=== PATIENT | female | born 1995 | race Asian ===

== ENCOUNTER 2018-05-11 22:20 | Emergency (ER) | payer OTHER ==
[2018-05-11 23:15] VITALS: BP 141/100; PULSE 89; RESP 20
[2018-05-12 00:26] VITALS: TEMP 97.6
--- NOTE | 2018-05-12 00:43 | ED ---
General Adult HPI - General Chief complaint: Skin/Abscess/Foreign Body Stated complaint: Rash/IHS Time Seen by Provider: 05/12/18 00:29 Source: patient, family, RN notes reviewed Mode of arrival: ambulatory Limitations: no limitations - History of Present Illness Initial comments: Patient is a pleasant 22-year-old female presenting to the emergency department with rash. Symptoms have been present for around one week. Patient states areas have been somewhat coming and going. Patient has approximately 6-8 lesions on her arm and 1 above her left breast. Patient does have concern she may be exposed to something at work. Patient does work at a snf. Patient was advised come to the emergency department prior to returning to work to make sure she is not contagious. No fevers. There is another person at work with similar symptoms. Nobody at home with similar symptoms. - Related Data Home Medications Medication Instructions Recorded Confirmed lamoTRIgine [LaMICtal] 225 mg 10/18/14 10/18/14 Allergies Allergy/AdvReac Type Severity Reaction Status Date / Time No Known Allergies Allergy Verified 05/11/18 23:15 Review of Systems ROS Statement: Those systems with pertinent positive or pertinent negative responses have been documented in the HPI. ROS Other: All systems not noted in ROS Statement are negative. Constitutional: Denies: fever Eyes: Denies: eye pain ENT: Denies: ear pain Respiratory: Denies: cough Cardiovascular: Denies: chest pain Endocrine: Denies: fatigue Gastrointestinal: Denies: abdominal pain Genitourinary: Denies: dysuria Musculoskeletal: Denies: back pain Skin: Reports: rash Neurological: Denies: headache Psychiatric: Denies: depression Past Medical History Past Medical History: Seizure Disorder History of Any Multi-Drug Resistant Organisms: None Reported Past Surgical History: Tonsillectomy Past Psychological History: Anxiety, Depression Smoking Status: Never smoker Past Alcohol Use History: Occasional Past Drug Use History: None Reported General Exam Limitations: no limitations General appearance: alert, in no apparent distress Head exam: Present: atraumatic Eye exam: Present: normal appearance Respiratory exam: Present: normal lung sounds bilaterally Cardiovascular Exam: Present: regular rate, normal rhythm Extremities exam: Present: normal inspection Neurological exam: Present: alert Psychiatric exam: Present: normal affect, normal mood Skin exam: Present: rash (Patient does have approximately 6 lesions of her upper extremities and one above the left breast. These are smaller macules with some with central puncture/eschar. Symptoms consistent with bug bites.) Course Vital Signs 05/11/18 05/12/18 23:13 00:25 Temperature 98.5 F 97.6 F Pulse Rate 89 Respiratory 20 Rate Blood Pressure 141/100 O2 Sat by Pulse 100 Oximetry Disposition Clinical Impression: Insect bites Disposition: HOME SELF-CARE Condition: Stable Instructions: Insect Bite or Sting (ED) Additional Instructions: [id number] 1% hydrocortisone cream to affected areas needed. Please wash all clothing and sheets with warm soapy water. Follow-up with primary care physician in the next couple days for recheck. Clear to return to work. Return for increased rash, fevers, worsening or changing symptoms or other concerns. Is patient prescribed a controlled substance at d/c from ED?: No Referrals: Ganesh Wade MD [Primary Care Provider] - 1-2 days Time of Disposition: 00:43
== END 2018-05-12 01:47 | disposition home or self-care (01) ==
LOC: EC 22:20
DX: S40.862A Insect bite (nonvenomous) of left upper arm, initial encounter (principal); S40.861A Insect bite (nonvenomous) of right upper arm, initial encounter; S20.162A Insect bite (nonvenomous) of breast, left breast, initial encounter; G40.909 Epilepsy, unspecified, not intractable, without status epilepticus; F32.9 Major depressive disorder, single episode, unspecified; Z79.899 Other long term (current) drug therapy; W57.XXXA Bitten or stung by nonvenomous insect and other nonvenomous arthropods, initial encounter; Y99.0 Civilian activity done for income or pay
CPT/HCPCS: 99282

== ENCOUNTER 2018-07-30 22:05 | Emergency (ER) | payer OTHER ==
[2018-07-30] MEDS ORDERED: SODIUM CHLORIDE 0.9% 1,000 ML IV STA (22:52)
[2018-07-30] MEDS ORDERED: METOCLOPRAMIDE 5 MG/ML 2 ML VIAL IVP STA (22:52)
[2018-07-30] MEDS ORDERED: ACETAMINOPHEN IV (For NPO) 1,000 MG in EMPTY BAG 1 BAG IVPB ONE (22:52)
--- NOTE | 2018-07-30 22:56 | ED ---
General Adult HPI - General Chief complaint: Nausea/Vomiting/Diarrhea Stated complaint: vomiting,11 weeks preg Source: patient Mode of arrival: ambulatory Limitations: no limitations - History of Present Illness Initial comments: Dictation was produced using [employer] dictation software. please excuse any grammatical, word or spelling errors. Chief Complaint: 22-year-old female who states she is 11 weeks presents with headache, nausea and vomiting. History of Present Illness: A 22-year-old female. She states this is her first . She states she is 11 weeks . She had an ultrasound to confirm the done patient does have established [employer]. Patient has a history of seizures for she which she takes lamotrigine 4. She has been managed outpatient by her neurologist. Patient states she's also been having associated nausea and vomiting. Patient states her headache is like a band around her head. She states she has a history of headaches. She reports that she had increase of her seizure medication recently. The ROS documented in this emergency department record has been reviewed and confirmed by me. Those systems with pertinent positive or negative responses have been documented in the HPI. All other systems are other negative and/or noncontributory. - Related Data Home Medications Medication Instructions Recorded Confirmed Pnv No.95/Ferrous Fum/Folic AC 1 tab PO DAILY 06/21/18 07/30/18 [ Multivitamin Tablet] Folic Acid 1 mg PO DAILY 07/30/18 07/30/18 Yeny 500 mg PO DAILY 07/30/18 07/30/18 Pyridoxine [Vitamin B-6] 50 mg PO DAILY 07/30/18 07/30/18 lamoTRIgine [LaMICtal Xr] 250 mg PO HS 07/30/18 07/30/18 Previous Rx's Medication Instructions Recorded Doxylamine Succinate/Vit B6 1 each PO Q8HR PRN #20 tab.ir. 07/31/18 [Bonjesta ER 20-20 mg Tablet] Allergies Allergy/AdvReac Type Severity Reaction Status Date / Time shellfish derived [Lobster] Allergy Rash/Hives Verified 07/30/18 22:41 Review of Systems ROS Statement: Those systems with pertinent positive or pertinent negative responses have been documented in the HPI. ROS Other: All systems not noted in ROS Statement are negative. Past Medical History Past Medical History: Seizure Disorder History of Any Multi-Drug Resistant Organisms: None Reported Past Surgical History: Tonsillectomy Past Psychological History: Anxiety, Depression Smoking Status: Never smoker Past Alcohol Use History: None Reported Past Drug Use History: None Reported General Exam - General Exam Comments Initial Comments: PHYSICAL EXAM: General Impression: Alert and oriented x3, not in acute distress HEENT: Normocephalic atraumatic, extra-ocular movements intact, pupils equal and reactive to light bilaterally, mucous membranes moist. Cardiovascular: Heart regular rate and rhythm, S1&S2 audible, no murmurs, rubs or gallops Chest: Lungs clear to auscultation bilaterally, no rhonchi, no wheeze, no rales Abdomen: Bowel sounds present, abdomen soft, non-tender, non-distended, no organomegaly Musculoskeletal: Pulses present and equal in all extremities, no peripheral edema Motor: Power 5/5 bilaterally, no focal deficits noted Neurological: CN II-XII grossly intact, no focal motor or sensory deficits noted Skin: Intact with no visualized rashes Psych: Normal affect and mood Limitations: no limitations Course Vital Signs 07/30/18 22:21 Temperature 97.3 F L Pulse Rate 86 Respiratory 16 Rate Blood Pressure 140/82 O2 Sat by Pulse 99 Oximetry Medical Decision Making - Medical Decision Making ED course: 32-year-old female with past medical history of seizures presents with nausea, vomiting and headache. She is allegedly 11 weeks . Vital signs upon arrival shows blood pressure 140/82, rest of vital signs within normal limits. Patient is well-appearing. She does not state that this is the worse headache of her life. There is clinical concern for hyperemesis gravidarum. Laboratory evaluation obtained. Patient given intravenous fluid and headache cocktail. She is requesting have her urine checked for urinary tract infection. Laboratory evaluation obtained showing no acute processes. Patient given headache cocktail and observed in emergency department for several hours. Patient reevaluated with improvement of symptoms. Patient given prescription for likely just go home with. 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 Patient understandable agreeable to plan. - Lab Data Result diagrams: 07/30/18 23:12 07/30/18 23:12 Lab Results 07/30/18 07/30/18 07/30/18 Range/Units 23:12 23:12 23:12 WBC 12.8 H (3.8-10.6) k/uL RBC 4.67 (3.80-5.40) m/uL Hgb 13.6 (11.4-16.0) gm/dL Hct 40.8 (34.0-46.0) % MCV 87.4 (80.0-100.0) fL MCH 29.2 (25.0-35.0) pg MCHC 33.4 (31.0-37.0) g/dL RDW 13.2 (11.5-15.5) % Plt Count 294 (150-450) k/uL Neutrophils % 69 % Lymphocytes % 23 % Monocytes % 5 % Eosinophils % 1 % Basophils % 1 % Neutrophils # 8.9 H (1.3-7.7) k/uL Lymphocytes # 2.9 (1.0-4.8) k/uL Monocytes # 0.6 (0-1.0) k/uL Eosinophils # 0.2 (0-0.7) k/uL Basophils # 0.1 (0-0.2) k/uL Sodium 136 L (137-145) mmol/L Potassium 3.8 (3.5-5.1) mmol/L Chloride 101 (98-107) mmol/L Carbon Dioxide 24 (22-30) mmol/L Anion Gap 11 mmol/L BUN 12 (7-17) mg/dL Creatinine 0.47 L (0.52-1.04) mg/dL Est GFR (CKD-EPI)AfAm >90 (>60 ml/min/1.73 sqM) Est GFR (CKD-EPI)NonAf >90 (>60 ml/min/1.73 sqM) Glucose 82 (74-99) mg/dL Calcium 9.5 (8.4-10.2) mg/dL Magnesium 1.8 (1.6-2.3) mg/dL Urine Color Light Yellow Urine Appearance Clear (Clear) Urine pH 6.5 (5.0-8.0) Ur Specific [place] 1.008 (1.001-1.035) Urine Protein Negative (Negative) Urine Glucose (UA) Negative (Negative) Urine Ketones Negative (Negative) Urine Blood Negative (Negative) Urine Nitrite Negative (Negative) Urine Bilirubin Negative (Negative) Urine Urobilinogen <2.0 (<2.0) mg/dL Ur Leukocyte Esterase Negative (Negative) Disposition Clinical Impression: Nausea & vomiting Disposition: HOME SELF-CARE Instructions: Acute Nausea and Vomiting (ED) Prescriptions: Doxylamine Succinate/Vit B6 [Bonjesta ER 20-20 mg Tablet] 1 each PO Q8HR PRN # 20 tab.ir. PRN Reason: Nausea Is patient prescribed a controlled substance at d/c from ED?: No Referrals: Ganesh Wade MD [Primary Care Provider] - 1-2 days Time of Disposition: 00:41
[2018-07-30 23:39] LABS: Basophils # (A) 0.1 k/uL (0-0.2); Basophils % (A) 1 %; Eosinophils # (A) 0.2 k/uL (0-0.7); Eosinophils % (A) 1 %; HCT 40.8 % (34.0-46.0); HGB 13.6 gm/dL (11.4-16.0); Lymphocytes # (A) 2.9 k/uL (1.0-4.8); Lymphocytes % (A) 23 %; MCH 29.2 pg (25.0-35.0); MCHC 33.4 g/dL (31.0-37.0); MCV 87.4 fL (80.0-100.0); Mean Platelet Volume 6.7; Monocytes # (A) 0.6 k/uL (0-1.0); Monocytes % (A) 5 %; Neutrophils # (A) 8.9 k/uL (1.3-7.7); Neutrophils % (A) 69 %; Platelet Count 294 k/uL (150-450); RBC 4.67 m/uL (3.80-5.40); RDW 13.2 % (11.5-15.5); WBC 12.8 k/uL (3.8-10.6)
[2018-07-30 23:40] LABS: Appearance,Urine Clear (Clear); Bilirubin,Urine Negative (Negative); Blood,Urine Negative (Negative); Color,Urine Light Yellow; Glucose,Urine (UA) Negative (Negative); Ketones,Urine Negative (Negative); Leukocyte Esterase,Urine Negative (Negative); Nitrite,Urine Negative (Negative); PH, Urine 6.5 (5.0-8.0); Protein,Urine Negative (Negative); Specific Gravity,Urine 1.008 (1.001-1.035); Urobilinogen,Urine <2.0 mg/dL (<2.0)
[2018-07-31 00:31] LABS: Anion Gap 11 mmol/L; Blood Urea Nitrogen 12 mg/dL (7-17); Calcium 9.5 mg/dL (8.4-10.2); Carbon Dioxide 24 mmol/L (22-30); Chloride 101 mmol/L (98-107); Glucose 82 mg/dL (74-99); Magnesium 1.8 mg/dL (1.6-2.3); Potassium 3.8 mmol/L (3.5-5.1); Sodium 136 mmol/L (137-145)
[2018-07-31 01:24] VITALS: BP 122/83; PULSE 52; RESP 18; TEMP 97.7
== END 2018-07-31 01:23 | disposition home or self-care (01) ==
LOC: EC 22:05
DX: O21.9 Vomiting of pregnancy, unspecified (principal); O99.89 Other specified diseases and conditions complicating pregnancy, childbirth and the puerperium; R51 Headache; O99.351 Diseases of the nervous system complicating pregnancy, first trimester; G40.909 Epilepsy, unspecified, not intractable, without status epilepticus; O99.341 Other mental disorders complicating pregnancy, first trimester; F32.9 Major depressive disorder, single episode, unspecified; Z91.013 Allergy to seafood; Z79.899 Other long term (current) drug therapy; Z3A.11 11 weeks gestation of pregnancy
CPT/HCPCS: 36415; 80048; 83735; 85025; 81003; 87086; 99284; 96374; 96375; 96361; J2765; J0131

== ENCOUNTER 2018-12-30 23:11 | Emergency (ER) | payer OTHER ==
[2018-12-30 23:17] VITALS: RESP 18
[2018-12-30] MEDS ORDERED: ALBUTEROL NEBULIZED 2.5 MG/3 ML INHALATION STA (23:50)
[2018-12-30] MEDS ORDERED: SODIUM CHLORIDE 0.9% 500 ML 500 ML IV STA (23:50)
[2018-12-30] MEDS ORDERED: FAMOTIDINE 20 MG/2 ML VIAL IV STA (23:50)
[2018-12-31 00:38] LABS: Basophils # (A) 0.1 k/uL (0-0.2); Basophils % (A) 1 %; Eosinophils # (A) 0.3 k/uL (0-0.7); Eosinophils % (A) 3 %; HCT 34.9 % (34.0-46.0); HGB 11.4 gm/dL (11.4-16.0); Lymphocytes % (A) 19 %; MCHC 32.6 g/dL (31.0-37.0); MCV 85.8 fL (80.0-100.0); Mean Platelet Volume 7.6; Monocytes % (A) 9 %; Neutrophils # (A) 6.9 k/uL (1.3-7.7); Neutrophils % (A) 66 %; Platelet Count 256 k/uL (150-450); RBC 4.07 m/uL (3.80-5.40); RDW 13.3 % (11.5-15.5); WBC 10.4 k/uL (3.8-10.6)
[2018-12-31 00:50] LABS: ALT 18 U/L (9-52); AST 23 U/L (14-36); Alkaline Phosphatase 148 U/L (38-126); Amylase 78 U/L (30-110); Anion Gap 7 mmol/L; Blood Urea Nitrogen 10 mg/dL (7-17); Calcium 8.6 mg/dL (8.4-10.2); Carbon Dioxide 24 mmol/L (22-30); Chloride 106 mmol/L (98-107); Glucose 86 mg/dL (74-99); Lipase 129 U/L (23-300); Magnesium 1.9 mg/dL (1.6-2.3); Potassium 3.8 mmol/L (3.5-5.1); Sodium 137 mmol/L (137-145); Total Bilirubin 0.2 mg/dL (0.2-1.3); Total Protein 5.7 g/dL (6.3-8.2)
--- NOTE | 2018-12-31 00:53 | XR ---
EXAM: XR Chest, 2 Views CLINICAL HISTORY: Chest pain TECHNIQUE: Frontal and lateral views of the chest. COMPARISON: No relevant prior studies available. FINDINGS: Lungs: Unremarkable. No consolidation. Pleural space: Unremarkable. No pneumothorax. Heart: Unremarkable. No cardiomegaly. Mediastinum: Unremarkable. Bones/joints: Unremarkable. IMPRESSION: Normal chest x-rays.
--- NOTE | 2018-12-31 01:24 | ED ---
Chest Pain HPI - General Source: patient Mode of arrival: ambulatory Limitations: no limitations <Cristiana Aquino - Last Filed: 12/31/18 02:29> <Anna Gonsales - Last Filed: 12/31/18 02:56> - General Chief Complaint: Chest Pain Stated Complaint: Chest Pain Time Seen by Provider: 12/30/18 23:28 - History of Present Illness Initial Comments: 23-year-old female patient presents to the emergency department today for evaluation of a bandlike pain around her lower chest. Patient states she is having some shortness of breath with this. Patient states this started several hours ago. States she thought it was heartburn so she did take several tablets of Tums, Prilosec, and Gaviscon without relief of symptoms. Patient states this made her anxious so she presented here for further evaluation. Patient does report recently getting over pneumonia. States 2 days ago she started coughing again and having a sore throat. Denies any sputum production with the cough but states she does have some wheezing. She denies any nausea or vomiting. Denies any dizziness or weakness. Denies any palpitations. Denies nausea or vomiting. Patient is 33 weeks . She is . Patient denies any recent rash, fever, chills, diarrhea, constipation, back pain, numbness, tingling, hematuria, dysuria, urinary urgency, urinary frequency, headache, visual changes, or any other complaints. (Cristiana Aquino) - Related Data Home Medications Medication Instructions Recorded Confirmed Pnv No.95/Ferrous Fum/Folic AC 1 tab PO DAILY 06/21/18 07/30/18 [ Multivitamin Tablet] Folic Acid 1 mg PO DAILY 07/30/18 07/30/18 Yeny 500 mg PO DAILY 07/30/18 07/30/18 Pyridoxine [Vitamin B-6] 50 mg PO DAILY 07/30/18 07/30/18 lamoTRIgine [LaMICtal Xr] 250 mg PO HS 07/30/18 07/30/18 Previous Rx's Medication Instructions Recorded Doxylamine Succinate/Vit B6 1 each PO Q8HR PRN #20 tab.ir. 07/31/18 [Bonjesta ER 20-20 mg Tablet] Albuterol Sulfate [Proair Hfa] 1 - 2 puff INHALATION Q6HR PRN #1 12/31/18 inhaler predniSONE 50 mg PO DAILY #5 tablet 12/31/18 Allergies Allergy/AdvReac Type Severity Reaction Status Date / Time shellfish derived [Lobster] Allergy Rash/Hives Verified 12/30/18 23:17 Review of Systems ROS Other: All systems not noted in ROS Statement are negative. <RashmiCristiana saxena Dave - Last Filed: 12/31/18 02:29> ROS Other: All systems not noted in ROS Statement are negative. <Anna Gonsales - Last Filed: 12/31/18 02:56> ROS Statement: Those systems with pertinent positive or pertinent negative responses have been documented in the HPI. EKG Findings - EKG Comments: EKG Findings:: EKG obtained at 2329 shows normal sinus rhythm with a ventricular rate of 90, GA interval 124, QRS duration 84, QT 366, QTc 447. No evidence of ST elevation or depression. <RashmiLinus saxenamarilin Acosta - Last Filed: 12/31/18 02:29> Past Medical History Past Medical History: Seizure Disorder History of Any Multi-Drug Resistant Organisms: None Reported Past Surgical History: Tonsillectomy Past Psychological History: Anxiety, Depression Smoking Status: Never smoker Past Alcohol Use History: None Reported Past Drug Use History: None Reported <Cristiana Aquino - Last Filed: 12/31/18 02:29> General Exam Limitations: no limitations General appearance: alert, in no apparent distress, other (Physical well- developed, well-nourished adult female patient in no acute distress. Vital signs upon presentation are temperature 98.0F, pulse 95, respirations 18, blood pressure 114/74, pulse ox 97% on room air.) Eye exam: Present: normal appearance, PERRL, EOMI. Absent: scleral icterus, conjunctival injection, periorbital swelling ENT exam: Present: normal exam, normal oropharynx, mucous membranes moist Respiratory exam: Present: normal lung sounds bilaterally, other (She does have congested cough noted upon exam). Absent: respiratory distress, wheezes, rales, rhonchi, stridor Cardiovascular Exam: Present: regular rate, normal rhythm, normal heart sounds. Absent: systolic murmur, diastolic murmur, rubs, gallop, clicks GI/Abdominal exam: Present: soft, normal bowel sounds. Absent: distended, tenderness, guarding, rebound, rigid Neurological exam: Present: alert, oriented X3, CN II-XII intact Psychiatric exam: Present: normal affect, normal mood Skin exam: Present: warm, dry, intact, normal color. Absent: rash <Cristiana Aquino - Last Filed: 12/31/18 02:29> Course Vital Signs 12/30/18 12/31/18 12/31/18 23:15 00:35 00:56 Temperature 98.0 F Pulse Rate 95 86 85 Respiratory 18 18 Rate Blood Pressure 114/74 109/87 O2 Sat by Pulse 97 100 Oximetry 12/31/18 12/31/18 12/31/18 01:04 01:10 02:23 Temperature 97.7 F Pulse Rate 85 98 Respiratory 18 18 Rate Blood Pressure 108/69 O2 Sat by Pulse 100 Oximetry Chest Pain MDM <Cristiana Aquino - Last Filed: 12/31/18 02:29> <Anna Gonsales - Last Filed: 12/31/18 02:56> - [facility]: Two-view x-ray of the chest is obtained. Report was reviewed in its entirety. Impression by Dr. Morton shows normal chest x-rays. MDM: 23-year-old female patient who is 33 weeks presents to the emergency department today for evaluation of chest pain. Patient reports a bandlike pain wrapped around her lower chest. Physical examination did reveal clear equal lung sounds. Abdomen was gravid but nontender. Labs reviewed and are unremarkable. Chest x-ray showed no acute cardio pulmonary process. Nursing labor and delivery was down and did perform nonstress test which was unremarkable. Patient was given a breathing treatment and IV Pepcid here in the emergency department. Upon reevaluation patient states symptoms have completely resolved. Patient does have a cough and is concerned for bronchitis we'll treat with Pro Air inhaler and prednisone. She has been discharged to follow-up with her primary care physician and her PROCESSING SPEC for recheck as soon as possible. Return parameters were discussed in detail. She verbalizes understanding and agrees with this plan. (Cristiana Aquino) I was available for consultation in the emergency department. The history and physical exam were done by the midlevel provider. I was consulted for this patient's care. I reviewed the case with the midlevel provider and based on their presentation of the patient, I agree with the assessment, medical decision making and plan of care as documented. (Anna Gonsales) Disposition Is patient prescribed a controlled substance at d/c from ED?: No Time of Disposition: 02:12 <Cristiana Aquino - Last Filed: 12/31/18 02:29> <Anna Gonsales - Last Filed: 12/31/18 02:56> Clinical Impression: Bronchitis, Chest pain Disposition: HOME SELF-CARE Condition: Good Instructions (If sedation given, give patient instructions): Chest Pain (ED), Acute Bronchitis (ED) Additional Instructions: Take medications as directed. Follow-up with your PROCESSING SPEC for recheck as soon as possible. Follow-up through primary care physician for recheck as soon as possible. Return to the emergency department immediately for any new, worsening, or concerning symptoms. Prescriptions: predniSONE 50 mg PO DAILY #5 tablet Albuterol Sulfate [Proair Hfa] 1 - 2 puff INHALATION Q6HR PRN #1 inhaler PRN Reason: Shortness Of Breath Referrals: Ganesh Wade MD [Primary Care Provider] - 1-2 days
[2018-12-31 02:08] LABS: INR 0.9 (<1.2); Prothrombin Time 9.4 sec (9.0-12.0)
[2018-12-31 02:24] VITALS: BP 108/69; PULSE 98; TEMP 97.7
== END 2018-12-31 02:24 | disposition home or self-care (01) ==
LOC: EC 23:11
DX: O99.513 Diseases of the respiratory system complicating pregnancy, third trimester (principal); J40 Bronchitis, not specified as acute or chronic; O99.353 Diseases of the nervous system complicating pregnancy, third trimester; G40.909 Epilepsy, unspecified, not intractable, without status epilepticus; O99.343 Other mental disorders complicating pregnancy, third trimester; F32.9 Major depressive disorder, single episode, unspecified; F41.9 Anxiety disorder, unspecified; Z3A.33 33 weeks gestation of pregnancy; Z79.899 Other long term (current) drug therapy; Z91.013 Allergy to seafood
CPT/HCPCS: 36415; 71046; 80053; 82150; 83690; 83735; 84484; 85025; 85610; 85730; 93005; 94640; 96361; 96374; 99285

== ENCOUNTER 2019-02-18 12:44 | Emergency (ER) | payer OTHER ==
[2019-02-18 12:57] VITALS: TEMP 98.3
--- NOTE | 2019-02-18 14:09 | XR ---
EXAMINATION TYPE: XR KUB DATE OF EXAM: 02/18/2019 2:04 PM CLINICAL HISTORY: Hemorrhoids and constipation. TECHNIQUE: Two Upright KUB images of the abdomen are obtained. COMPARISON: None. FINDINGS: Scattered gas is seen in non-distended stomach and small bowel loops. Gas and fecal materia l is seen in non-distended colon and rectum. There is no visceromegaly, pneumoperitoneum, or abnormal calcification appreciated. The lung bases are clear and the osseous structures are intact. IMPRESSION: Overall nonobstructive bowel gas pattern.
[2019-02-18 14:21] LABS: Basophils # (A) 0.1 k/uL (0-0.2); Basophils % (A) 1 %; Eosinophils # (A) 0.2 k/uL (0-0.7); Eosinophils % (A) 3 %; HCT 43.9 % (34.0-46.0); Lymphocytes # (A) 2.1 k/uL (1.0-4.8); Lymphocytes % (A) 26 %; MCH 28.4 pg (25.0-35.0); MCHC 32.8 g/dL (31.0-37.0); MCV 86.7 fL (80.0-100.0); Mean Platelet Volume 7.2; Monocytes # (A) 0.5 k/uL (0-1.0); Monocytes % (A) 6 %; Neutrophils # (A) 4.8 k/uL (1.3-7.7); Neutrophils % (A) 61 %; Platelet Count 378 k/uL (150-450); RBC 5.06 m/uL (3.80-5.40); RDW 14.4 % (11.5-15.5); WBC 7.9 k/uL (3.8-10.6)
[2019-02-18 14:24] LABS: ALT 37 U/L (9-52); AST 37 U/L (14-36); Albumin 4.5 g/dL (3.5-5.0); Alkaline Phosphatase 123 U/L (38-126); Amylase 84 U/L (30-110); Anion Gap 7 mmol/L; Blood Urea Nitrogen 19 mg/dL (7-17); Calcium 9.4 mg/dL (8.4-10.2); Carbon Dioxide 25 mmol/L (22-30); Chloride 107 mmol/L (98-107); Glucose 81 mg/dL (74-99); Lipase 123 U/L (23-300); Sodium 139 mmol/L (137-145); Total Bilirubin 0.6 mg/dL (0.2-1.3); Total Protein 7.7 g/dL (6.3-8.2)
[2019-02-18] MEDS ORDERED: LIDOCAINE VISCOUS 2% 15 ML CUP MUCOUS MEM ONE (14:26)
[2019-02-18 14:27] LABS: HGB 14.4 gm/dL (11.4-16.0)
[2019-02-18] MEDS ORDERED: GLYCERIN ADULT SUPPOSITORY 1 EACH RECTAL STA (14:27)
[2019-02-18 14:28] LABS: Potassium 4.8 mmol/L (3.5-5.1)
--- NOTE | 2019-02-18 14:49 | ED ---
Abdominal Pain HPI - General Chief Complaint: Abdominal Pain Stated Complaint: hemorrhoids/constipation Time Seen by Provider: 02/18/19 13:37 Source: patient Mode of arrival: ambulatory Limitations: no limitations - History of Present Illness Initial Comments: 23-year-old female 11 days , with history of hemorrhoids present today for chief complaint of constipation. Patient states she has not had a bowel movement in 8 days. She states that she is scared to due to pain from her hemorrhoids. Patient states they have been bleeding on and off. She states are painful to touch. Pt states that she has not had heavy vaginal bleeding. She state that she did not tear during her vaginal near the rectum. Patient denies fever chills night sweats. Patient denies any vaginal discharge or bleeding. Patient is breast-feeding. Remaining review of systems negative upon arrival patient appears well no signs of toxicity. - Related Data Home Medications Medication Instructions Recorded Confirmed Pnv No.95/Ferrous Fum/Folic AC 1 tab PO HS 06/21/18 02/18/19 [ Multivitamin Tablet] Escitalopram [Lexapro] 20 mg PO HS 02/18/19 02/18/19 Omeprazole [PriLOSEC] 20 mg PO HS 02/18/19 02/18/19 lamoTRIgine [lamoTRIgine ER] 400 mg PO HS 02/18/19 02/18/19 Previous Rx's Medication Instructions Recorded Docusate [Colace] 100 mg PO DAILY 10 Days #10 capsule 02/18/19 Allergies Allergy/AdvReac Type Severity Reaction Status Date / Time shellfish derived [Lobster] Allergy Rash/Hives Verified 02/18/19 13:45 Review of Systems ROS Statement: Those systems with pertinent positive or pertinent negative responses have been documented in the HPI. ROS Other: All systems not noted in ROS Statement are negative. Past Medical History Past Medical History: Seizure Disorder History of Any Multi-Drug Resistant Organisms: None Reported Past Surgical History: Tonsillectomy Past Psychological History: Anxiety, Depression Smoking Status: Never smoker Past Alcohol Use History: None Reported Past Drug Use History: None Reported General Exam - General Exam Comments Initial Comments: General: The patient is awake and alert, in no distress, and does not appear acutely ill. Eye: Pupils are equal, round and reactive to light, extra-ocular movements are intact. No nystagmus. There is normal conjunctiva bilaterally. No signs of icterus. Ears, nose, mouth and throat: There are moist mucous membranes and no oral lesions. Neck: The neck is supple, there is no tenderness or JVD. Cardiovascular: There is a regular rate and rhythm. No murmur, rub or gallop is appreciated. Respiratory: Lungs are clear to auscultation, respirations are non-labored, breath sounds are equal. No wheezes, stridor, rales, or rhonchi Gastrointestinal: Soft, non-distended, non-tender abdomen without masses or organomegaly noted. There is no rebound or guarding present. No CVA tenderness. Bowel sounds are unremarkable. Upon inspection of the rectum there is external hemorrhoid. This appears nonthrombosed. Tender to palpation Musculoskeletal: Normal ROM, no tenderness. Strength 5/5. Sensation intact. Pulses equal bilaterally 2+. Neurological: A&O x 3. CN II-XII intact, There are no obvious motor or sensory deficits. Coordination appears grossly intact. Speech is normal. Skin: Skin is warm and dry and no rashes or lesions are noted. Psychiatric: Cooperative, appropriate mood & affect, normal judgment. Limitations: no limitations Course Vital Signs 02/18/19 02/18/19 12:50 16:27 Temperature 98.3 F Pulse Rate 92 89 Respiratory 18 16 Rate Blood Pressure 117/79 112/78 O2 Sat by Pulse 98 100 Oximetry Medical Decision Making - Medical Decision Making 23-year-old female presenting for constipation. Patient states she has not had a bowel movement in greater than 8 days. On imaging study KUB there is normal PATTERN however significant fecal stasis. Patient was given viscous lidocaine per rectum. For pain management. Patient had glycerin suppository. Patient had very large bowel movement, she states it was the largest one of her life. Pt states she feels better. Pt does not appears to have thrombosed hemmrhoids. Pt given RX for colace. Pt using prepH at home. Pt will be discharge with outpatient pcp follow-up.Case discussed with attending provider Dr. Clemons over the phone prior to discharge who is agreeable with plan. - Lab Data Result diagrams: 02/18/19 13:50 02/18/19 13:50 Lab Results 02/18/19 02/18/19 Range/Units 13:50 13:50 WBC 7.9 (3.8-10.6) k/uL RBC 5.06 (3.80-5.40) m/uL Hgb 14.4 D (11.4-16.0) gm/dL Hct 43.9 (34.0-46.0) % MCV 86.7 (80.0-100.0) fL MCH 28.4 (25.0-35.0) pg MCHC 32.8 (31.0-37.0) g/dL RDW 14.4 (11.5-15.5) % Plt Count 378 (150-450) k/uL Neutrophils % 61 % Lymphocytes % 26 % Monocytes % 6 % Eosinophils % 3 % Basophils % 1 % Neutrophils # 4.8 (1.3-7.7) k/uL Lymphocytes # 2.1 (1.0-4.8) k/uL Monocytes # 0.5 (0-1.0) k/uL Eosinophils # 0.2 (0-0.7) k/uL Basophils # 0.1 (0-0.2) k/uL Sodium 139 (137-145) mmol/L Potassium 4.8 (3.5-5.1) mmol/L Chloride 107 (98-107) mmol/L Carbon Dioxide 25 (22-30) mmol/L Anion Gap 7 mmol/L BUN 19 H (7-17) mg/dL Creatinine 0.64 (0.52-1.04) mg/dL Est GFR (CKD-EPI)AfAm >90 (>60 ml/min/1.73 sqM) Est GFR (CKD-EPI)NonAf >90 (>60 ml/min/1.73 sqM) Glucose 81 (74-99) mg/dL Calcium 9.4 (8.4-10.2) mg/dL Total Bilirubin 0.6 (0.2-1.3) mg/dL AST 37 H (14-36) U/L ALT 37 (9-52) U/L Alkaline Phosphatase 123 (38-126) U/L Total Protein 7.7 (6.3-8.2) g/dL Albumin 4.5 (3.5-5.0) g/dL Amylase 84 (30-110) U/L Lipase 123 (23-300) U/L Disposition Clinical Impression: External hemorrhoid, Constipation, Rectal pain Disposition: HOME SELF-CARE Condition: Good Instructions (If sedation given, give patient instructions): Constipation (ED), Hemorrhoids (ED) Additional Instructions: Please use medication as discussed. Please follow-up with family doctor in the next 2 days. Please return to emergency room if the symptoms increase or worsen or for any other concerns. Prescriptions: Docusate [Colace] 100 mg PO DAILY 10 Days #10 capsule Is patient prescribed a controlled substance at d/c from ED?: No Referrals: Ganesh Wade MD [Primary Care Provider] - 1-2 days Time of Disposition: 16:09
[2019-02-18 16:27] VITALS: BP 112/78; PULSE 89; RESP 16
== END 2019-02-18 16:20 | disposition home or self-care (01) ==
LOC: EC 12:44
DX: K59.00 Constipation, unspecified (principal); K64.4 Residual hemorrhoidal skin tags; G40.909 Epilepsy, unspecified, not intractable, without status epilepticus; F41.9 Anxiety disorder, unspecified; F32.9 Major depressive disorder, single episode, unspecified; Z79.899 Other long term (current) drug therapy; Z91.013 Allergy to seafood
CPT/HCPCS: 36415; 74018; 80053; 82150; 83690; 85025; 99284

== ENCOUNTER 2020-12-07 16:00 | Outpatient (CLI) | payer BC ==
[2020-12-07 17:30] VITALS: BP 144/86; PULSE 111; RESP 16; TEMP 98.9
--- NOTE | 2021-01-24 17:24 | P.MSEPDOC ---
Presenting Problems - Arrival Data Date of Arrival on Unit: 12/07/20 Time of Arrival on Unit: 16:10 Mode of Transport: Wheelchair - Complaint OB-Reason for Admission/Chief Complaint: Other Comment: "pain in vagina" Medical History - Information : 2 Para: 1 Term: 1 : 0 Abortions: Spontaneous or Elective: 0 Number of Living Children: 1 - Gestational Age Gestational Age by MARCI (wks/days): 24 Weeks and 4 Days - History Complications: Other Comment: epilepzy . no siezures for 1 1/2 years. starting new med today Review of Systems - Review of Systems Constitutional: No problems Breast: No problems ENT: No problems Cardiovascular: No problems Respiratory: No problems Gastrointestinal: No problems Genitourinary: No problems Musculoskeletal: No problems Neurological: No problems Skin: No problems Comment: intercourse last night Vital Signs - Temperature Temperature: 98.9 F Temperature Source: Tympanic - Pulse Right Apical Pulse Rate: 111 Pulse Assessment Method: Automatic Cuff - Respirations Respiratory Rate: 16 Oxygen Delivery Method: Room Air - Blood Pressure Right Arm Blood Pressure: 144/86 Blood Pressure Mean: 105 Blood Pressure Source: Automatic Cuff Medical Screen Scoring (Pre) - Cervical Exam Dilation: 0 cm = 0 Effacement: Exam Deferred Membranes: Intact - Uterine Contractions Frequency: N/A - Maternal Vital Signs Maternal Temperature: N/A Maternal Blood Pressure: N/A Signs of Preeclampsia: N/A - Maternal Trauma Maternal Trauma: N/A - Assessment - Baby A Baseline FHR: 150 Heart Rate - NICHD Category: Category I (Normal) = 0 - Total Score - Baby A Total Score - Baby A: 0 - Total Score - Baby B Total Score - Baby B: 0 - Total Score - Baby C Total Score - Baby C: 0 - Level of Risk - Baby A Level of Risk - Baby A: Low (0-5) - Level of Risk - Baby B Level of Risk - Baby B: Low (0-5) - Level of Risk - Baby C Level of Risk - Baby C: Low (0-5) Physician Notification (Pre) - Physician Notified Physician Notified Date: 12/07/20 Physician Notified Time: 17:00 New Order Received: Yes (TRIAGE?DISCHARGE) - Notification Comment Comment: DOM. [place] [address]. high risk due to epilepzy. no problems with this preg so far. intercourse last night. worked today Disposition - Disposition OB Disposition: Discharge to home Discharge Date: 12/07/20 Discharge Time: 17:20 I agree with the RN Medical Screening Exam: Yes Physician's MSE Comment: Patient was not seen or examined by myself Case reviewed; plan agreed upon as documented in EMR&OBIX.: Yes Diagnosis: PAIN, UNSPECIFIED
== END 2020-12-07 17:20 | disposition home or self-care (01) ==
LOC: FBPOP 16:00
PROVIDERS: ATTEND Obstetrics & Gynecology Obstetrics
DX: O26.892 Other specified pregnancy related conditions, second trimester (principal); R10.2 Pelvic and perineal pain; Z3A.24 24 weeks gestation of pregnancy
CPT/HCPCS: 99213

== ENCOUNTER → 2022-04-18 | Outpatient (CLI) | payer BC ==
--- NOTE | 2022-04-18 08:37 | USB ---
Reason for Exam: Clinical finding. Technique: Method: Whole Breast Handheld. Patient Position: Supine. Prior Study Comparison: Baseline Ultrasound. Findings: The whole breast of the left breast was scanned. Scanned over the pain of pain and palpable concern, no abnormality seen by ultrasound.No solid or cystic masses are identified.. Complete left breast ultrasound including evaluation of subareolar and axillary regions. Overall Assessment: Negative, BI-RAD 1 Electronically signed and approved by: Steve Guthrie M.D.
== END | disposition home or self-care (01) ==
LOC: RADUSWWP 08:07
PROVIDERS: ATTEND Family Medicine
DX: N64.4 Mastodynia (principal)

== ENCOUNTER 2024-02-18 03:51 | Emergency (ER) | payer BC ==
--- NOTE | 2024-02-18 04:06 | ED ---
Recheck HPI - General Chief Complaint: Headache Stated Complaint: High BP Time Seen by Provider: 02/18/24 04:04 Source: patient, family, RN notes reviewed, old records reviewed Mode of arrival: ambulatory Limitations: no limitations - History of Present Illness Initial Comments: This is a 28-year-old female who presents for evaluation of headache. History of migraine headaches and coming in for found to have elevated blood pressure. At this point patient is having persistent headache and was found to have an elevated blood pressure which she is extremely concerned about. She has no chest pain shortness with abdominal pain no change in medications no other complaints MD Complaint: other (Hypertension with headache) -: days(s) Returns Today for: persistent/worsening pain related to initial visit Symptoms Since Prior Visit: worsening pain Associated Symptoms: none Treatments Prior to Arrival: Given Pain Meds on, other (Concern for headache) - Related Data Home Medications Medication Instructions Recorded Confirmed Pnv No.95/Ferrous Fum/Folic AC 1 tab PO HS 06/21/18 11/29/22 [ Multivitamin Tablet] DULoxetine HCL [Cymbalta] 20 mg PO DAILY 12/07/20 11/29/22 Allergies Allergy/AdvReac Type Severity Reaction Status Date / Time shellfish derived [Lobster] Allergy Rash/Hives Verified 02/18/24 04:00 Review of Systems ROS Statement: Those systems with pertinent positive or pertinent negative responses have been documented in the HPI. ROS Other: All systems not noted in ROS Statement are negative. Past Medical History Past Medical History: Asthma, Seizure Disorder History of Any Multi-Drug Resistant Organisms: None Reported Past Surgical History: Tonsillectomy Past Psychological History: Anxiety, Depression Smoking Status: Never smoker Past Alcohol Use History: None Reported Past Drug Use History: None Reported General Exam General appearance: alert, in no apparent distress Head exam: Present: atraumatic, normocephalic, normal inspection Eye exam: Present: normal appearance, PERRL, EOMI. Absent: scleral icterus, conjunctival injection, periorbital swelling ENT exam: Present: normal exam, mucous membranes moist Neck exam: Present: normal inspection. Absent: tenderness, meningismus, lymphadenopathy Respiratory exam: Present: normal lung sounds bilaterally. Absent: respiratory distress, wheezes, rales, rhonchi, stridor Cardiovascular Exam: Present: regular rate, normal rhythm, normal heart sounds. Absent: systolic murmur, diastolic murmur, rubs, gallop, clicks GI/Abdominal exam: Present: soft, normal bowel sounds. Absent: distended, tenderness, guarding, rebound, rigid Extremities exam: Present: normal inspection, full ROM, normal capillary refill. Absent: tenderness, pedal edema, joint swelling, calf tenderness Back exam: Present: normal inspection Neurological exam: Present: alert, oriented X3, CN II-XII intact Psychiatric exam: Present: normal affect, normal mood Skin exam: Present: warm, dry, intact, normal color. Absent: rash Course Vital Signs 02/18/24 02/18/24 02/18/24 03:53 04:50 06:04 Temperature 98.2 F Pulse Rate 73 71 62 Respiratory 18 18 18 Rate Blood Pressure 137/91 139/93 132/87 O2 Sat by Pulse 97 97 97 Oximetry - Reevaluation(s) Reevaluation #1: Medical records reviewed Reevaluation #2: Patient symptoms unchanged Reevaluation #3: Informed of results questions answered Reevaluation #4: Was pt. sent in by a medical professional or institution (, PA, [employer] WORKER, urgent care, hospital, or retirement...) When possible be specific @ -no Did you speak to anyone other than the patient for history (EMS, parent, family, police, friend...)? What history was obtained from this source @ -no Did you review nursing and triage notes (agree or disagree)? Why? @ -agree Are old charts reviewed (outside hosp., previous admission, EMS record, old EKG, old radiological studies, urgent care reports/EKG's, retirement records)? Report findings @ -yes Differential Diagnosis (chest pain, altered mental status, abdominal pain women, abdominal pain men, vaginal bleeding, weakness, fever, dyspnea, syncope, headache, dizziness, GI bleed, back pain, seizure, CVA, palpatations, mental health, musculoskeletal)? @ -prior EKG interpreted by me (3pts min.). @ -no X-rays interpreted by me (1pt min.). @ -no CT interpreted by me (1pt min.). @ -no U/S interpreted by me (1pt. min.). @ -no What testing was considered but not performed or refused? (CT, X-rays, U/S, l abs)? Why? @ -none What meds were considered but not given or refused? Why? @ -none Did you discuss the management of the patient with other professionals (professionals i.e. , PA, [employer] WORKER, lab, RT, psych nurse, social work professor, game attendant, teacher, fourth officer, transplant case manager)? Give summary @ -no Was smoking cessation discussed for >3mins.? @ -no Was critical care preformed (if so, how long)? @ -no Were there social determinants of health that impacted care today? How? (Homelessness, low income, unemployed, alcoholism, drug addiction, transportation, low edu. Level, literacy, decrease access to med. care, [facility], rehab)? @ -none Was there de-escalation of care discussed even if they declined (Discuss DNR or withdrawal of care, Hospice)? DNR status @ -no What co-morbidities impacted this encounter? (DM, HTN, Smoking, COPD, CAD, Cancer, CVA, ARF, Chemo, Hep., AIDS, mental health diagnosis, sleep apnea, morbid obesity)? @ -none Was patient admitted / discharged? Hospital course, mention meds given and route, prescriptions, significant lab abnormalities, going to OR and other pertinent info. @ -28 female to ER for evaluation of headache with concern for hypertension. No acute cause of symptoms found here in the ER patient feels well can be discharged home Discharge Undiagnosed new problem with uncertain prognosis? @ -no Drug Therapy requiring intensive monitoring for toxicity (Heparin, Nitro, Insulin, Cardizem)? @ -no Were any procedures done? @ -no Diagnosis/symptom? @ -Headache migraine headache hypertension Acute, or Chronic, or Acute on Chronic? @ -Acute Uncomplicated (without systemic symptoms) or Complicated (systemic symptoms)? @ -Complicated Side effects of treatment? @ -no Exacerbation, Progression, or Severe Exacerbation? @ -exacerbation Poses a threat to life or bodily function? How? (Chest pain, [place], [place], pneumonia, PE, COPD, DKA, ARF, appy, cholecystitis, CVA, Diverticulitis, Homicidal, Suicidal, threat to staff... and all critical care pts) @ -yes with cause of headache Reevaluation #5: Differential Headache: Migraine, tension, cluster, carbon monoxide, central venous thrombosis, pension karma temporal arteritis, acute closure glaucoma, intercranial hemorrhage, mastoiditis, sinusitis, head injury, this is not meant to be an all-inclusive list. Medical Decision Making - Medical Decision Making 28 female to ER for evaluation of headache with concern for hypertension. No acute cause of symptoms found here in the ER patient feels well can be discharged home - Lab Data Result diagrams: 02/18/24 04:24 02/18/24 04:24 Lab Results 02/18/24 02/18/24 02/18/24 Range/Units 04:24 04:24 04:24 WBC 7.4 (3.8-10.6) k/uL RBC 4.97 (3.80-5.40) m/uL Hgb 13.2 (11.4-16.0) gm/dL Hct 41.0 (34.0-46.0) % MCV 82.4 (80.0-100.0) fL MCH 26.5 (25.0-35.0) pg MCHC 32.2 (31.0-37.0) g/dL RDW 16.0 H (11.5-15.5) % Plt Count 315 (150-450) k/uL MPV 8.2 Neutrophils % 52 % Lymphocytes % 34 % Monocytes % 7 % Eosinophils % 4 % Basophils % 1 % Neutrophils # 3.8 (1.3-7.7) k/uL Lymphocytes # 2.5 (1.0-4.8) k/uL Monocytes # 0.5 (0-1.0) k/uL Eosinophils # 0.3 (0-0.7) k/uL Basophils # 0.1 (0-0.2) k/uL Anisocytosis Slight PT 10.9 (10.0-12.5) sec INR 1.0 (<1.2) APTT 25.2 (22.0-30.0) sec Sodium 137 (137-145) mmol/L Potassium 4.1 (3.5-5.1) mmol/L Chloride 107 (98-107) mmol/L Carbon Dioxide 22 (22-30) mmol/L Anion Gap 8 mmol/L BUN 17 (7-17) mg/dL Creatinine 0.60 (0.52-1.04) mg/dL Est GFR (CKD-EPI)AfAm >90 (>60 ml/min/1.73 sqM) Est GFR (CKD-EPI)NonAf >90 (>60 ml/min/1.73 sqM) Glucose 82 (74-99) mg/dL Plasma Lactic Acid Anthony (0.7-2.0) mmol/L Uric Acid 6.4 (3.7-7.4) mg/dL Calcium 9.0 (8.4-10.2) mg/dL Phosphorus 4.5 (2.5-4.5) mg/dL Magnesium 2.0 (1.6-2.3) mg/dL Total Bilirubin 0.3 (0.2-1.3) mg/dL AST 20 (14-36) U/L ALT 19 (4-34) U/L Alkaline Phosphatase 127 H (38-126) U/L Troponin I (0.000-0.034) ng/mL NT-Pro-B Natriuret Pep 35 pg/mL Total Protein 6.6 (6.3-8.2) g/dL Albumin 3.7 (3.5-5.0) g/dL Total Bile Acids (0-10) umol/L Urine Color Urine Appearance (Clear) Urine pH (5.0-8.0) Ur Specific [place] (1.001-1.035) Urine Protein (Negative) Urine Glucose (UA) (Negative) Urine Ketones (Negative) Urine Blood (Negative) Urine Nitrite (Negative) Urine Bilirubin (Negative) Urine Urobilinogen (<2.0) mg/dL Ur Leukocyte Esterase (Negative) Urine RBC (0-5) /hpf Urine WBC (0-5) /hpf Ur Squamous Epith Cells (0-4) /hpf Urine Bacteria (None) /hpf 02/18/24 02/18/24 02/18/24 Range/Units 04:24 04:24 04:45 WBC (3.8-10.6) k/uL RBC (3.80-5.40) m/uL Hgb (11.4-16.0) gm/dL Hct (34.0-46.0) % MCV (80.0-100.0) fL MCH (25.0-35.0) pg MCHC (31.0-37.0) g/dL RDW (11.5-15.5) % Plt Count (150-450) k/uL MPV Neutrophils % % Lymphocytes % % Monocytes % % Eosinophils % % Basophils % % Neutrophils # (1.3-7.7) k/uL Lymphocytes # (1.0-4.8) k/uL Monocytes # (0-1.0) k/uL Eosinophils # (0-0.7) k/uL Basophils # (0-0.2) k/uL Anisocytosis PT (10.0-12.5) sec INR (<1.2) APTT (22.0-30.0) sec Sodium (137-145) mmol/L Potassium (3.5-5.1) mmol/L Chloride (98-107) mmol/L Carbon Dioxide (22-30) mmol/L Anion Gap mmol/L BUN (7-17) mg/dL Creatinine (0.52-1.04) mg/dL Est GFR (CKD-EPI)AfAm (>60 ml/min/1.73 sqM) Est GFR (CKD-EPI)NonAf (>60 ml/min/1.73 sqM) Glucose (74-99) mg/dL Plasma Lactic Acid Anthony 0.8 (0.7-2.0) mmol/L Uric Acid (3.7-7.4) mg/dL Calcium (8.4-10.2) mg/dL Phosphorus (2.5-4.5) mg/dL Magnesium (1.6-2.3) mg/dL Total Bilirubin (0.2-1.3) mg/dL AST (14-36) U/L ALT (4-34) U/L Alkaline Phosphatase (38-126) U/L Troponin I <0.012 (0.000-0.034) ng/mL NT-Pro-B Natriuret Pep pg/mL Total Protein (6.3-8.2) g/dL Albumin (3.5-5.0) g/dL Total Bile Acids 3 (0-10) umol/L Urine Color Urine Appearance (Clear) Urine pH (5.0-8.0) Ur Specific [place] (1.001-1.035) Urine Protein (Negative) Urine Glucose (UA) (Negative) Urine Ketones (Negative) Urine Blood (Negative) Urine Nitrite (Negative) Urine Bilirubin (Negative) Urine Urobilinogen (<2.0) mg/dL Ur Leukocyte Esterase (Negative) Urine RBC (0-5) /hpf Urine WBC (0-5) /hpf Ur Squamous Epith Cells (0-4) /hpf Urine Bacteria (None) /hpf 02/18/24 Range/Units 05:00 WBC (3.8-10.6) k/uL RBC (3.80-5.40) m/uL Hgb (11.4-16.0) gm/dL Hct (34.0-46.0) % MCV (80.0-100.0) fL MCH (25.0-35.0) pg MCHC (31.0-37.0) g/dL RDW (11.5-15.5) % Plt Count (150-450) k/uL MPV Neutrophils % % Lymphocytes % % Monocytes % % Eosinophils % % Basophils % % Neutrophils # (1.3-7.7) k/uL Lymphocytes # (1.0-4.8) k/uL Monocytes # (0-1.0) k/uL Eosinophils # (0-0.7) k/uL Basophils # (0-0.2) k/uL Anisocytosis PT (10.0-12.5) sec INR (<1.2) APTT (22.0-30.0) sec Sodium (137-145) mmol/L Potassium (3.5-5.1) mmol/L Chloride (98-107) mmol/L Carbon Dioxide (22-30) mmol/L Anion Gap mmol/L BUN (7-17) mg/dL Creatinine (0.52-1.04) mg/dL Est GFR (CKD-EPI)AfAm (>60 ml/min/1.73 sqM) Est GFR (CKD-EPI)NonAf (>60 ml/min/1.73 sqM) Glucose (74-99) mg/dL Plasma Lactic Acid Anthony (0.7-2.0) mmol/L Uric Acid (3.7-7.4) mg/dL Calcium (8.4-10.2) mg/dL Phosphorus (2.5-4.5) mg/dL Magnesium (1.6-2.3) mg/dL Total Bilirubin (0.2-1.3) mg/dL AST (14-36) U/L ALT (4-34) U/L Alkaline Phosphatase (38-126) U/L Troponin I (0.000-0.034) ng/mL NT-Pro-B Natriuret Pep pg/mL Total Protein (6.3-8.2) g/dL Albumin (3.5-5.0) g/dL Total Bile Acids (0-10) umol/L Urine Color Colorless Urine Appearance Clear (Clear) Urine pH 6.0 (5.0-8.0) Ur Specific [place] 1.003 (1.001-1.035) Urine Protein Negative (Negative) Urine Glucose (UA) Negative (Negative) Urine Ketones Negative (Negative) Urine Blood Moderate H (Negative) Urine Nitrite Negative (Negative) Urine Bilirubin Negative (Negative) Urine Urobilinogen <2.0 (<2.0) mg/dL Ur Leukocyte Esterase Moderate H (Negative) Urine RBC 1 (0-5) /hpf Urine WBC 6 H (0-5) /hpf Ur Squamous Epith Cells <1 (0-4) /hpf Urine Bacteria Rare H (None) /hpf Disposition Clinical Impression: Headache, Migraine headache Disposition: HOME SELF-CARE Condition: Good Instructions (If sedation given, give patient instructions): Acute Headache (ED) Is patient prescribed a controlled substance at d/c from ED?: No Referrals: Patricio Ferrer MD [Primary Care Provider] - 1-2 days Time of Disposition: 06:00
[2024-02-18] MEDS: diphenhydrAMINE 50 MG/ML 1 ML VIAL IVP STA (04:25)
[2024-02-18] MEDS: PROCHLORPERAZINE INJ 10 MG/2 ML VIAL IVP STA (04:26)
[2024-02-18] MEDS: SODIUM CHLORIDE 0.9% 500 ML 500 ML IV STA (04:30)
[2024-02-18] MEDS: SODIUM CHLORIDE 0.9% 1,000 ML IV STA (04:31)
[2024-02-18] MEDS: ACETAMINOPHEN IV (For NPO) 1,000 MG in EMPTY BAG 1 BAG IVPB STA (04:33)
[2024-02-18 04:36] VITALS: RESP 18; TEMP 98.2
[2024-02-18] MEDS: IBUPROFEN IV 800 MG in SODIUM CHLORIDE 0.9% 250 ML IV ONE (04:54)
[2024-02-18 04:57] LABS: Anisocytosis Slight; Basophils # (A) 0.1 k/uL (0-0.2); Basophils % (A) 1 %; Eosinophils # (A) 0.3 k/uL (0-0.7); Eosinophils % (A) 4 %; HGB 13.2 gm/dL (11.4-16.0); Lymphocytes # (A) 2.5 k/uL (1.0-4.8); Lymphocytes % (A) 34 %; MCH 26.5 pg (25.0-35.0); MCHC 32.2 g/dL (31.0-37.0); MCV 82.4 fL (80.0-100.0); Mean Platelet Volume 8.2; Monocytes # (A) 0.5 k/uL (0-1.0); Monocytes % (A) 7 %; Neutrophils # (A) 3.8 k/uL (1.3-7.7); Neutrophils % (A) 52 %; Platelet Count 315 k/uL (150-450); RBC 4.97 m/uL (3.80-5.40); WBC 7.4 k/uL (3.8-10.6)
[2024-02-18 05:06] LABS: Partial Thromboplastin Time 25.2 sec (22.0-30.0); Prothrombin Time 10.9 sec (10.0-12.5)
[2024-02-18 05:12] LABS: Appearance,Urine Clear (Clear); Bacteria,Urine Rare /hpf; Bilirubin,Urine Negative (Negative); Blood,Urine Moderate (Negative); Color,Urine Colorless; Glucose,Urine (UA) Negative (Negative); Ketones,Urine Negative (Negative); Leukocyte Esterase,Urine Moderate (Negative); Nitrite,Urine Negative (Negative); Protein,Urine Negative (Negative); RBC,Urine 1 /hpf (0-5); Specific Gravity,Urine 1.003 (1.001-1.035); Squamous Epithelial Cell,Urine <1 /hpf (0-4); Urobilinogen,Urine <2.0 mg/dL (<2.0); WBC,Urine 6 /hpf (0-5)
[2024-02-18 05:13] LABS: ALT 19 U/L (4-34); AST 20 U/L (14-36); African American GFR (CKD) >90 (>60 ml/min/1.73 sqM); Albumin 3.7 g/dL (3.5-5.0); Alkaline Phosphatase 127 U/L (38-126); Anion Gap 8 mmol/L; Blood Urea Nitrogen 17 mg/dL (7-17); Carbon Dioxide 22 mmol/L (22-30); Chloride 107 mmol/L (98-107); Glucose 82 mg/dL (74-99); Non-African American GFR(CKD) >90 (>60 ml/min/1.73 sqM); Phosphorus 4.5 mg/dL (2.5-4.5); Potassium 4.1 mmol/L (3.5-5.1); Sodium 137 mmol/L (137-145); Total Bilirubin 0.3 mg/dL (0.2-1.3); Total Protein 6.6 g/dL (6.3-8.2); Uric Acid 6.4 mg/dL (3.7-7.4)
[2024-02-18 05:21] LABS: NT-Pro-B-Type Natriuretic Pept 35 pg/mL
[2024-02-18 07:30] VITALS: BP 132/87; PULSE 62
== END 2024-02-18 06:11 | disposition home or self-care (01) ==
LOC: EC 03:51
DX: G43.909 Migraine, unspecified, not intractable, without status migrainosus (principal); I10 Essential (primary) hypertension; Z91.013 Allergy to seafood
CPT/HCPCS: 36415; 82239; 83880; 80053; 83605; 83735; 84100; 84550; 84484; 85025; 85610; 85730; 81001; 99283; 96365; 96367; 96375 ×2; J1200; J0780; J0131; J1741

== ENCOUNTER 2025-05-02 15:35 | Inpatient (IN) | payer BC ==
--- NOTE | 2025-05-02 16:18 | ED ---
Psych HPI - General Chief Complaint: Psychiatric Symptoms Stated Complaint: Psych eval Time Seen by Provider: 05/02/25 15:44 Source: patient, RN notes reviewed, old records reviewed Mode of arrival: ambulatory Limitations: no limitations - History of Present Illness Initial Comments: This is a 29-year-old female to the ER for evaluation as patient was today for psychiatric evaluation and depression patient's main current plan is to hang herself from the floor in her basement some no one can see, denies drugs or alcohol MD Complaint: suicidal ideation, feels depressed -: unknown Associated Psychiatric Symptoms: depression History of same: Yes Quality: constant, getting worse Improves With: none Worsens With: none Associated Symptoms: denies other symptoms Treatments Prior to Arrival: placed on mental health hold If Self Harm: admits thoughts of self harm, has plan - Related Data Home Medications Medication Instructions Recorded Confirmed Pnv No.95/Ferrous Fum/Folic AC 1 tab PO DAILY 06/21/18 05/02/25 [ Multivitamin Tablet] Cholecalciferol [Vitamin D3 (25 50 mcg PO DAILY 05/02/25 05/02/25 Mcg = 1000 Iu)] Ferrous Sulfate [Iron (65 MG 325 mg PO DAILY 05/02/25 05/02/25 Elemental)] Methylphenidate HCl [Ritalin] 20 mg PO DAILY 05/02/25 05/02/25 Previous Rx's Medication Instructions Recorded ARIPiprazole IM [Abilify Maintena] 400 mg IM QMONTHLY #1 each 05/05/25 ARIPiprazole [Abilify] 15 mg PO DAILY 14 Days #14 tab 05/05/25 DULoxetine HCL [Cymbalta] 30 mg PO HS 30 Days #30 cap 05/05/25 hydrOXYzine HCL [Atarax] 50 mg PO HS 30 Days #60 tab 05/05/25 traZODone HCL [Desyrel] 50 mg PO HS PRN 30 Days #30 tab 05/05/25 Allergies Allergy/AdvReac Type Severity Reaction Status Date / Time shellfish derived [Lobster] Allergy Rash/Hives Verified 05/02/25 16:38 Review of Systems ROS Statement: Those systems with pertinent positive or pertinent negative responses have been documented in the HPI. ROS Other: All systems not noted in ROS Statement are negative. Past Medical History Past Medical History: Asthma, Seizure Disorder History of Any Multi-Drug Resistant Organisms: None Reported Past Surgical History: Tonsillectomy Past Psychological History: Anxiety, Depression Smoking Status: Never smoker Past Alcohol Use History: None Reported Past Drug Use History: None Reported General Exam Limitations: no limitations General appearance: alert, in no apparent distress Head exam: Present: atraumatic, normocephalic, normal inspection Eye exam: Present: normal appearance, PERRL, EOMI. Absent: scleral icterus, conjunctival injection, periorbital swelling ENT exam: Present: normal exam, mucous membranes moist Neck exam: Present: normal inspection. Absent: tenderness, meningismus, lymphadenopathy Respiratory exam: Present: normal lung sounds bilaterally. Absent: respiratory distress, wheezes, rales, rhonchi, stridor Cardiovascular Exam: Present: regular rate, normal rhythm, normal heart sounds. Absent: systolic murmur, diastolic murmur, rubs, gallop, clicks GI/Abdominal exam: Present: soft, normal bowel sounds. Absent: distended, tenderness, guarding, rebound, rigid Extremities exam: Present: normal inspection, full ROM, normal capillary refill. Absent: tenderness, pedal edema, joint swelling, calf tenderness Back exam: Present: normal inspection Neurological exam: Present: alert, oriented X3, CN II-XII intact Psychiatric exam: Present: normal affect, normal mood Skin exam: Present: warm, dry, intact, normal color. Absent: rash Course Vital Signs 05/02/25 15:36 Temperature 97.9 F Pulse Rate 84 Respiratory 22 Rate Blood Pressure 134/85 O2 Sat by Pulse 99 Oximetry - Reevaluation(s) Reevaluation #1: 05/02/25 16:42 Medical records reviewed Reevaluation #2: 05/02/25 16:42 Medically cleared for psychiatric evaluation Reevaluation #3: 05/02/25 16:42 Was pt. sent in by a medical professional or institution (, PA, [facility], urgent care, hospital, or fdc...) When possible be specific @ -no Did you speak to anyone other than the patient for history (EMS, parent, family, police, friend...)? What history was obtained from this source @ -no Did you review nursing and triage notes (agree or disagree)? Why? @ -agree Are old charts reviewed (outside hosp., previous admission, EMS record, old EKG, old radiological studies, urgent care reports/EKG's, fdc records)? Report findings @ -yes Differential Diagnosis (chest pain, altered mental status, abdominal pain women, abdominal pain men, vaginal bleeding, weakness, fever, dyspnea, syncope, headache, dizziness, GI bleed, back pain, seizure, CVA, palpatations, mental health, musculoskeletal)? @ -prior EKG interpreted by me (3pts min.). @ -no X-rays interpreted by me (1pt min.). @ -no CT interpreted by me (1pt min.). @ -no U/S interpreted by me (1pt. min.). @ -no What testing was considered but not performed or refused? (CT, X-rays, U/S, labs)? Why? @ -none What meds were considered but not given or refused? Why? @ -none Did you discuss the management of the patient with other professionals (professionals i.e. , PA, [facility], lab, RT, psych nurse, social work lecturer, sack department supervisor, teacher, armored vehicle officer, lining caser)? Give summary @ -no Was smoking cessation discussed for >3mins.? @ -no Was critical care preformed (if so, how long)? @ -no Were there social determinants of health that impacted care today? How? (Homelessness, low income, unemployed, alcoholism, drug addiction, transportation, low edu. Level, literacy, decrease access to med. care, shelter, rehab)? @ -none Was there de-escalation of care discussed even if they declined (Discuss DNR or withdrawal of care, Hospice)? DNR status @ -no What co-morbidities impacted this encounter? (DM, HTN, Smoking, COPD, CAD, Cancer, CVA, ARF, Chemo, Hep., AIDS, mental health diagnosis, sleep apnea, morbid obesity)? @ -none Was patient admitted / discharged? Hospital course, mention meds given and route, prescriptions, significant lab abnormalities, going to OR and other pertinent info. @ - 29 female to be admitted for psychiatric evaluation and treatment Transferred for inpatient psychiatric evaluation and treatment Undiagnosed new problem with uncertain prognosis? @ -no Drug Therapy requiring intensive monitoring for toxicity (Heparin, Nitro, Insulin, Cardizem)? @ -no Were any procedures done? @ -no Diagnosis/symptom? @ -Acute psychosis Acute, or Chronic, or Acute on Chronic? @ -Acute Uncomplicated (without systemic symptoms) or Complicated (systemic symptoms)? @ -Complicated Side effects of treatment? @ -no Exacerbation, Progression, or Severe Exacerbation? @ -exacerbation Poses a threat to life or bodily function? How? (Chest pain, [place], [place], pneumonia, PE, COPD, DKA, ARF, appy, cholecystitis, CVA, Diverticulitis, Homicidal, Suicidal, threat to staff... and all critical care pts) @ -no Reevaluation #4: Differential Mental Health Depression, anxiety, bipolar, psychosis, schizophrenia, borderline personality, situational depression, adjustment disorder, behavioral disorder, brain tumor, malingering, substance abuse, encephalopathy, medication reaction, dementia, hypothyroidism, degenerative neurologic disorder, lupus.... This is not meant to be all-inclusive list Medical Decision Making - Medical Decision Making 29 female to be admitted for psychiatric evaluation and treatment - Lab Data Result diagrams: 05/03/25 08:09 05/03/25 08:09 Lab Results 05/02/25 Range/Units 19:29 SARS-CoV-2 (PCR) Not Detected (Not Detectd) Disposition Clinical Impression: Acute psychosis, Acute anxiety, Depression, Suicidal ideation Disposition: TRANSFER TO PSYCH HOSP/UNIT Condition: Stable Is patient prescribed a controlled substance at d/c from ED?: No
[2025-05-02] MEDS ORDERED: MAG HYDROX/AL HYDROX/SIMETH 355 ML BOTTLE PO PRN (20:58)
[2025-05-02] MEDS ORDERED: MAGNESIUM HYDROXIDE 2,400 MG/30 ML CUP PO PRN (20:58)
[2025-05-02] MEDS: hydrOXYzine HCL 25 MG TAB PO PRN (21:35)
[2025-05-02] MEDS: ACETAMINOPHEN TAB 325 MG TAB PO PRN (21:36)
[2025-05-02 22:22] LABS: Bilirubin,Urine Negative (Negative); Blood,Urine Moderate (Negative); Color,Urine Yellow; Glucose,Urine (UA) Negative (Negative); Ketones,Urine Negative (Negative); Leukocyte Esterase,Urine Small (Negative); Mucus,Urine Moderate /hpf; Nitrite,Urine Negative (Negative); PH, Urine 6.0 (5.0-8.0); Protein,Urine Negative (Negative); RBC,Urine 2 /hpf (0-5); Specific Gravity,Urine 1.029 (1.001-1.035); Squamous Epithelial Cell,Urine 4 /hpf (0-4); Urobilinogen,Urine <2.0 mg/dL (<2.0); WBC,Urine 6 /hpf (0-5)
[2025-05-02 22:24] LABS: Barbiturate Screen,Urine Not Detected (NotDetected); Benzodiazepines Screen,Urine Not Detected (NotDetected); Opiate Screen,Urine Not Detected (NotDetected); Oxycodone Screen, Urine Not Detected (NotDetected); Phencyclidine Screen,Urine Not Detected (NotDetected); Tricyclic Antidepressant,Urine Not Detected (NotDetected); Urn Cannabinoid Scrn Detected (NotDetected)
[2025-05-03 08:46] LABS: Basophils # (A) 0.07 10*3/uL (0.00-0.10); Basophils % (A) 1.0 %; Eosinophils # (A) 0.40 10*3/uL (0.04-0.35); Eosinophils % (A) 5.5 %; HCT 42.8 % (37.2-46.3); HGB 14.0 g/dL (12.0-15.0); Lymphocytes # (A) 3.23 10*3/uL (0.90-5.00); Lymphocytes % (A) 44.6 %; MCH 28.3 pg (27.0-32.0); MCHC 32.7 g/dL (32.0-37.0); MCV 86.6 fL (80.0-97.0); Monocytes # (A) 0.62 10*3/uL (0.20-1.00); Monocytes % (A) 8.6 %; Neutrophils # (A) 2.91 10*3/uL (1.80-7.70); Neutrophils % (A) 40.0 %; Platelet Count 256 10*3/uL (140-440); RBC 4.94 10*6/uL (4.10-5.20); RDW 12.8 % (11.5-14.5); WBC 7.25 10*3/uL (4.50-10.00)
[2025-05-03] MEDS: NICOTINE 14MG/24HR PATCH TRANSDERM SCH (08:53)
[2025-05-03 09:04] LABS: ALT 19 U/L (4-34); AST 22 U/L (14-36); African American GFR (CKD) >90 (>60 ml/min/1.73 sqM); Albumin 4.1 g/dL (3.5-5.0); Alkaline Phosphatase 61 U/L (38-126); Anion Gap 6 mmol/L; Blood Urea Nitrogen 15 mg/dL (7-17); Calcium 8.9 mg/dL (8.4-10.2); Carbon Dioxide 27 mmol/L (22-30); Chloride 106 mmol/L (98-107); Glucose 82 mg/dL (74-99); Non-African American GFR(CKD) >90 (>60 ml/min/1.73 sqM); Potassium 4.1 mmol/L (3.5-5.1); Sodium 139 mmol/L (137-145); Total Protein 6.7 g/dL (6.3-8.2)
[2025-05-03] MEDS: IBUPROFEN 600 MG TAB PO PRN (10:50)
--- NOTE | 2025-05-03 13:24 | P.HP ---
Psychiatric H&P - . H&P Date: 05/03/25 History & Physical: Allergies Allergy/AdvReac Type Severity Reaction Status Date / Time shellfish derived lobster Allergy Rash/Hives Verified 05/02/25 16:38 Vital Signs Temp 98.6 F 05/02/25 21:47 Pulse 75 05/03/25 09:00 Resp 18 05/03/25 09:00 BP 114/75 05/03/25 09:00 Pulse Ox 100 05/03/25 09:00 FiO2 Intake & Output 05/02/25 05/03/25 05/03/25 18:59 06:59 18:59 Weight 89.358 kg 89.494 kg Laboratory Last Values WBC 7.25 10*3/uL (4.50-10.00) 05/03/25 08:09 RBC 4.94 10*6/uL (4.10-5.20) 05/03/25 08:09 Hgb 14.0 g/dL (12.0-15.0) 05/03/25 08:09 Hct 42.8 % (37.2-46.3) 05/03/25 08:09 MCV 86.6 fL (80.0-97.0) 05/03/25 08:09 MCH 28.3 pg (27.0-32.0) 05/03/25 08:09 MCHC 32.7 g/dL (32.0-37.0) 05/03/25 08:09 Plt Count 256 10*3/uL (140-440) 05/03/25 08:09 MPV 10.4 fL (9.5-12.2) 05/03/25 08:09 Immature Gran % (Auto) 0.3 % 05/03/25 08:09 Neutrophils % 40.0 % 05/03/25 08:09 Lymphocytes % 44.6 % 05/03/25 08:09 Monocytes % 8.6 % 05/03/25 08:09 Eosinophils % 5.5 % 05/03/25 08:09 Basophils % 1.0 % 05/03/25 08:09 Immature Gran # 0.02 10*3/uL (0.00-0.04) 05/03/25 08:09 Neutrophils # 2.91 10*3/uL (1.80-7.70) 05/03/25 08:09 Lymphocytes # 3.23 10*3/uL (0.90-5.00) 05/03/25 08:09 Monocytes # 0.62 10*3/uL (0.20-1.00) 05/03/25 08:09 Eosinophils # 0.40 10*3/uL (0.04-0.35) H 05/03/25 08:09 Basophils # 0.07 10*3/uL (0.00-0.10) 05/03/25 08:09 Sodium 139 mmol/L (137-145) 05/03/25 08:09 Potassium 4.1 mmol/L (3.5-5.1) 05/03/25 08:09 Chloride 106 mmol/L (98-107) 05/03/25 08:09 Carbon Dioxide 27 mmol/L (22-30) 05/03/25 08:09 Anion Gap 6 mmol/L 05/03/25 08:09 BUN 15 mg/dL (7-17) 05/03/25 08:09 Creatinine 0.66 mg/dL (0.52-1.04) 05/03/25 08:09 Est GFR (CKD-EPI)AfAm >90 (>60 ml/min/1.73 sqM) 05/03/25 08:09 Est GFR (CKD-EPI)NonAf >90 (>60 ml/min/1.73 sqM) 05/03/25 08:09 Glucose 82 mg/dL (74-99) 05/03/25 08:09 Calcium 8.9 mg/dL (8.4-10.2) 05/03/25 08:09 Total Bilirubin 0.4 mg/dL (0.2-1.3) 05/03/25 08:09 AST 22 U/L (14-36) 05/03/25 08:09 ALT 19 U/L (4-34) 05/03/25 08:09 Alkaline Phosphatase 61 U/L (38-126) 05/03/25 08:09 Total Protein 6.7 g/dL (6.3-8.2) 05/03/25 08:09 Albumin 4.1 g/dL (3.5-5.0) 05/03/25 08:09 TSH 1.620 mIU/L (0.465-4.680) 05/03/25 08:09 Urine Color Yellow 05/02/25 21:47 Urine Appearance Clear (Clear) 05/02/25 21:47 Urine pH 6.0 (5.0-8.0) 05/02/25 21:47 Ur Specific [place] 1.029 (1.001-1.035) 05/02/25 21:47 Urine Protein Negative (Negative) 05/02/25 21:47 Urine Glucose (UA) Negative (Negative) 05/02/25 21:47 Urine Ketones Negative (Negative) 05/02/25 21:47 Urine Blood Moderate (Negative) H 05/02/25 21:47 Urine Nitrite Negative (Negative) 05/02/25 21:47 Urine Bilirubin Negative (Negative) 05/02/25 21:47 Urine Urobilinogen <2.0 mg/dL (<2.0) 05/02/25 21:47 Ur Leukocyte Esterase Small (Negative) H 05/02/25 21:47 Urine RBC 2 /hpf (0-5) 05/02/25 21:47 Urine WBC 6 /hpf (0-5) H 05/02/25 21:47 Ur Squamous Epith Cells 4 /hpf (0-4) 05/02/25 21:47 Urine Mucus Moderate /hpf (None) H 05/02/25 21:47 Urine HCG, Qual Not Detected (Not Detectd) 05/02/25 21:47 Urine Opiates Screen Not Detected (NotDetected) 05/02/25 21:47 Ur Oxycodone Screen Not Detected (NotDetected) 05/02/25 21:47 Urine Methadone Screen Not Detected (NotDetected) 05/02/25 21:47 Ur Barbiturates Screen Not Detected (NotDetected) 05/02/25 21:47 U Tricyclic Antidepress Not Detected (NotDetected) 05/02/25 21:47 Ur Phencyclidine Scrn Not Detected (NotDetected) 05/02/25 21:47 Ur Amphetamines Screen Not Detected (NotDetected) 05/02/25 21:47 U Methamphetamines Scrn Not Detected (NotDetected) 05/02/25 21:47 U Benzodiazepines Scrn Not Detected (NotDetected) 05/02/25 21:47 Urine Cocaine Screen Not Detected (NotDetected) 05/02/25 21:47 U Marijuana (THC) Screen Detected (NotDetected) H 05/02/25 21:47 SARS-CoV-2 (PCR) Not Detected (Not Detectd) 05/02/25 19:29 05/03/25 13:14 IDENTIFYING DATA: Patient is a 29-year-old female, unemployed, living with and 4 children CHIEF COMPLAINT: SI with a plan HPI: Patient presented to the hospital with depression, suicidal ideations. Per EPS, "patient came into ER for suicidal ideations with a plan to hang herself per triage. Patient assessed in ER12 from [id number] with at bedside per patient request. Patient verbalizes struggling with intrusive thoughts that are overwhelming and struggling to get tasks done related to intrusive thoughts. For example, patient states she was in the basement doing laundry and was looking at the ceiling and thought about hanging herself there, or describes driving in her car with thoughts of crashing. Patient verbalizes she has no current intention on acting on thoughts, but the thoughts are intrusive and overwhelming. Patient verbalizes living with and 4 children aged 6, 4, 2, and 1. 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 Patient states that she feels overwhelmed doing simple day to day tasks such as cooking, cleaning, and taking care of her children. Patient verbalizes history of depression and "borderline psychosis" after her first child. States she had baby blues after her second child. However, currently denies any symptoms after her recent 2 children. Patient states she has history of outpatient treatment though [facility] whom she has not seen in about 2-3 years. Patient states that her PCP has continued her abilify which she does not believe is working. Patient verbalizes being sporatically compliant with home medications and recently more forgetful to take them. Unknown last doses of medications per patient. Patient verbalizes not liking the abilify noting it making her feel numb and has not been effective recently. Patient denies auditory or visual hallucinations. Patient verbalizes paranoia at times. Patient guarded regarding feeling paranoid. However, patient expresses that patient is very afraid of taking her children outside or going anywhere due to paranoid thoughts about someone coming to take her children. Patient agreed with her husbands statements regarding paranoia. Patient verbalizes increased appetite and fair sleep. Patient verbalizes difficulty maintaining hygiene due to intrusive thoughts and lack of motivation or energy. Patient verbalizes almost daily marijuana use. Denies alcohol use. Never smoker." Patient seen and evaluated on the unit and was agreeable with speaking to policy writer in office. She states feeling overwhelmed lately and reports predominate mood swings with intrusive thoughts that usually she does not align with however lately these thoughts have not been scary for her which caused concern. Patient denies any suicidal or homicidal ideations intent or plan at this time. At this time patient denies any auditory or visual hallucinations. Patient denies any flight of ideas racing thoughts and increased in goal directed behavior at this time but does state that she has struggled with her mood episodes for as long as she can remember, stating "there's times where I will be up at 3am rearranging furniture. Patient rates depression 8/10 and anxiety 6/10 at this time but does state that most of her anxiety is likely related to the environment and acuity of other patients on the unit. She reports anhedonia, increased appetite, poor ADLs, and trouble falling asleep for about a week. She states the week prior she spent more money than usual and threw a big barbecue on Thursday because she finally felt good, and then Thursday she was depressed causing her to spiral downward. She also reports constant worry and edginess and states she has always been labeled as an anxious person. Patient admits to using marijuana edibles daily with increased use recently. She denies any other substance use other than occasional alcohol. PAST PSYCHIATRIC HISTORY: Patient has a history of ADHD, OCD, depression. She is currently prescribed Ritalin 10 mg twice daily and Abilify 10 mg daily however maps shows Ritalin was last filled on 01/18/2025. Patient denies any previous psychiatric hospitalizations. Patient denies any psychiatric outpatient follow-up. Patient denies any history of suicide attempts in the past. PMH: as per ER note ALLERGIES: as per EMR SUBSTANCE USE HISTORY: As per HPI FAMILY PSYCHIATRIC/SUBSTANCE USE HISTORY: Patient reports bipolar disorder is strong on her father side of the family and that she believes her mother has undiagnosed bipolar disorder SOCIAL HISTORY: Patient and has 4 children between the ages of 1 and 6. She completed high school, is unemployed. She denied any legal issues. MENTAL STATUS EXAM: General Appearance: Patient appears to be stated age is alert, directable, and attempts to cooperate. Patient appears to have fair hygiene and grooming. Behavior: Patient is seated without any agitated behavior. Speech: Patient's speech is fluent and nonpressured. Mood/Affect: Patient reports their mood is depressed, affect is congruent and blunted Suicidality/Homicidality: Patient denies having any homicidal ideation intent or plan. Denies any suicidal ideations intent or plan Perceptions: Patient denies any visual hallucinations and denies any auditory hallucinations Though content/process: There is no evidence of any delusional thought content and thought process is linear and goal-directed. Memory and concentration: AOX3, grossly intact for the purposes of this session. Can spell "WORLD" backwards Judgment and insight: Poor STRENGTHS/WEAKNESSES: strength is that patient is resilient and has family support. Weakness is that patient has poor judgment intrusive thoughts and is impulsive INTELLECT: Average IMPRESSIONS: Bipolar 2 disorder, current episode depressed OCD DEDRICK Cannabis use disorder History of ADHD PLAN: -Patient is admitted under voluntary status to [facility] for stabilization of psychiatric symptoms and safety. Patient has signed adult voluntary form and and is placed in patient's chart. -Medications : Increase Abilify to 15 mg daily for bipolar disorder, start Cymbalta 30 mg daily for depression/anxiety - Hydroxyzine PRN for agitation/aggression -Patient was counselled on substance abuse and desired to cut back on use -Patient was informed of the risks, benefits and side effects of the medication and patient verbally consented to taking the medications. Patient signed med consent form and was placed in chart. Patient offered and declined patient education sheet for psychotropic medications. -Internal Medicine consult to perform medical evaluation and physical. -NRT -not needed as patient does not smoke -SW on board for discharge planning. Encourage patient to participate in groups to work on coping skills.
[2025-05-03] MEDS: ARIPiprazole 15 MG TAB PO SCH (14:22)
[2025-05-03 16:03] LABS: Cholesterol 132.00 mg/dL (0.00-200.00); HDL Cholesterol 49.40 mg/dL (40.00-60.00); LDL Cholesterol,Calculated 65.7 mg/dL (0.0-131.0); Triglycerides 84.60 mg/dL (0.00-149.00); VLDL Calculation 16.92 mg/dL (5.00-40.00)
[2025-05-03] MEDS: hydrOXYzine HCL 25 MG TAB PO SCH (20:36)
[2025-05-03 20:40] VITALS: RESP 16
--- NOTE | 2025-05-04 13:14 | P.PN ---
Progress Note - Text Progress Note Date: 05/04/25 Interval History: Patient was seen in her room and was directable and agreeable to speak with wr iter in the room. She mentions feeling better today, states that her mental breakdowns normally resolves in 2 hours however her did note her to have an increase in frequency and them. Patient was future oriented, expressed a desire to return home with her 4 young children. She states her intrusive thoughts are at baseline, no worsening in them. She inquires about [facility] given her history of nonadherence and was agreeable with transitioning to Abilify Maintena today. She did express some nausea and dizziness with the Cymbalta to which she states experiencing these adverse effects previously however switching this to nighttime helped. At this time patient denies any suicidal or homicidal ideations, intent or plan. Patient denies any auditory, visual hallucinations and denies any paranoia or delusions. Patient has been compliant with meds. Mental Status Exam: General Appearance: Patient appears to be stated age is alert, directable, and cooperative. Behavior: Patient is calmly seated without any agitated behavior. Speech: Patient's speech is fluent and nonpressured. Mood/Affect: Mood is improving mildly, affect is congruent and reactive. Suicidality/Homicidality: Patient denies having any suicidal or homicidal ideation intent or plan. Perceptions: Patient denies any visual hallucinations and denies any auditory hallucinations Though content/process: There is no evidence of any delusional thought content and thought process is linear and goal-directed. Memory and concentration: AOX3, grossly intact for the purposes of this session Judgment and insight: Improving mildly Assessment Bipolar 2 disorder, current episode depressed OCD DEDRICK Cannabis use disorder History of ADHD Plan: -Patient continues to meet criteria for inpatient psychiatric admission for symp destiny stabilization and safety. Patient has signed adult voluntary form and medication consent and was placed in patient's chart. -Medications: Abilify maintena 400 mg IM to be given today with oral Abilify bridge for the next 2 weeks, change Cymbalta to 30 mg at bedtime starting tomorrow night, continue Atarax 50 mg at bedtime for insomnia -When necessary hydroxyzine for agitation/aggression. -Labs: Reviewed, WNL -SW on board for discharge planning. Encouraged the patient to participate in milieu. Anticipate discharge back home with and children tomorrow pending transition to [facility]
[2025-05-04] MEDS: ARIPiprazole IM SYRINGE 400 MG (NO CHARGE) PHARMACY STOCK IM ONE (15:13)
[2025-05-05 09:12] VITALS: BP 108/72; PULSE 98; TEMP 97.8
--- NOTE | 2025-05-05 10:32 | P.DS ---
Providers Date of admission: 05/02/25 20:35 Expected date of discharge: 05/05/25 Attending physician: Rebecca Crabtree MD Consults: 05/02/25 20:58 Consult Physician Routine Consulting Provider: Amanda Zaragoza Consult Reason/Comments: History and Physical, New Admission Do you want consulting provider notified?: Yes Primary care physician: Peewee Smith MD - Discharge Diagnosis(es) (1) Bipolar 2 disorder, major depressive episode Current Visit: Yes Status: Acute Priority: High (2) OCD (obsessive compulsive disorder) Current Visit: Yes Status: Acute Priority: High (3) DEDRICK (generalized anxiety disorder) Current Visit: Yes Status: Acute Priority: Medium (4) Cannabis use disorder Current Visit: Yes Status: Acute Priority: Low Hospital Course: Admission HPI: Admission note was completed by field underwriter "Patient presented to the hospital with depression, suicidal ideations. Per EPS, "patient came into ER for suicidal ideations with a plan to hang herself per triage. Patient assessed in ER12 from [id number] with at bedside per patient request. Patient verbalizes struggling with intrusive thoughts that are overwhelming and struggling to get tasks done related to intrusive thoughts. For example, patient states she was in the basement doing laundry and was looking at the ceiling and thought about hanging herself there, or describes driving in her car with thoughts of crashing. Patient verbalizes she has no current intention on acting on thoughts, but the thoughts are intrusive and overwhelming. Patient verbalizes living with and 4 children aged 6, 4, 2, and 1. 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 Patient states that she feels overwhelmed doing simple day to day tasks such as cooking, cleaning, and taking care of her children. Patient verbalizes history of depression and "borderline psychosis" after her first child. States she had baby blues after her second child. However, currently denies any symptoms after her recent 2 children. Patient states she has history of outpatient treatment though Marlen[facility] Escobar whom she has not seen in about 2-3 years. Patient states that her PCP has continued her abilify which she does not believe is working. Patient verbalizes being sporatically compliant with home medications and recently more forgetful to take them. Unknown last doses of medications per patient. Patient verbalizes not liking the abilify noting it making her feel numb and has not been effective recently. Patient denies auditory or visual hallucinations. Patient verbalizes paranoia at times. Patient guarded regarding feeling paranoid. However, patient expresses that patient is very afraid of taking her children outside or going anywhere due to paranoid thoughts about someone coming to take her children. Patient agreed with her husbands statements regarding paranoia. Patient verbalizes increased appetite and fair sleep. Patient verbalizes difficulty maintaining hygiene due to intrusive thoughts and lack of motivation or energy. Patient verbalizes almost daily marijuana use. Denies alcohol use. Never smoker." Patient seen and evaluated on the unit and was agreeable with speaking to field underwriter in office. She states feeling overwhelmed lately and reports predominate mood swings with intrusive thoughts that usually she does not align with however lately these thoughts have not been scary for her which caused concern. Patient denies any suicidal or homicidal ideations intent or plan at this time. At this time patient denies any auditory or visual hallucinations. Patient denies any flight of ideas racing thoughts and increased in goal directed behavior at this time but does state that she has struggled with her mood episodes for as long as she can remember, stating "there's times where I will be up at 3am rearranging furniture. Patient rates depression 8/10 and anxiety 6/10 at this time but does state that most of her anxiety is likely related to the environment and acuity of other patients on the unit. She reports anhedonia, increased appetite, poor ADLs, and trouble falling asleep for about a week. She states the week prior she spent more money than usual and threw a big barbecue on Thursday because she finally felt good, and then Thursday she was depressed causing her to spiral downward. She also reports constant worry and edginess and states she has always been labeled as an anxious person. Patient admits to using marijuana edibles daily with increased use recently. She denies any other substance use other than occasional alcohol. " Hospital course: Upon admission to the unit patient was directable and agreeable to commence treatment and signed adult voluntary form. Patient got along well with other patients on the unit and followed unit protocol. Patient was compliant with the medications and denied any side effects throughout hospital course. Patient was started on Cymbalta 30 mg at bedtime for depression/anxiety, Abilify 15 mg daily for bipolar disorder, Atarax 50 mg at bedtime for insomnia. Patient was ultimately transition to Abilify roula received 400 mg IM on 05/04 with the next dose being due on 06/01 with patient taking oral Abilify for 2 more weeks then discontinue. Patient spoke of her stressors and engaged in therapy both group and individual. Patient was also seen by medical team for history and physical exam. Throughout the course of the hospitalization patient gradually improved with regards to mood, anxiety, sleep and returned back to their baseline level of functioning. On the day of discharge patient denied any suicidal or homicidal ideations intent or plan denied any auditory or visual hallucinations. The patient denied any access to guns or weapons. Patient denied any paranoia and did not endorse any delusions. Patient does not have a significant history of substance abuse and was counseled on abstaining from all substances including alcohol and marijuana Patient was also counseled on the medications and need for regular compliance and was encouraged to follow-up with their outpatient appointment for mental health and also for primary care. Prior to discharge a family meeting will be arranged by family welfare social work professor to answer any questions and ensure safety upon discharge including making sure that guns/weapons are either removed from the home or locked away. Patient to be discharged home with and children and will follow-up with [facility] Mental status exam: General Appearance: Patient appears to be stated age is alert, pleasant, and co operative. Patient is in no acute distress and has fair hygiene and grooming Behavior: Patient is calmly seated without any agitated behavior. Speech: Patient's speech is fluent and nonpressured. Mood/Affect: Patient reports their mood is "better", affect is congruent and euthymic. Suicidality/Homicidality: Patient denies having any suicidal or homicidal ideation intent or plan. Perceptions: Patient denies any auditory or visual hallucinations. Though content/process: There is no evidence of any delusional thought content and thought process is linear and goal-directed. More future oriented Memory and concentration: AOX3, grossly intact for the purposes of this session. Can spell "WORLD" backwards correctly. Judgment and insight: Good Impression: Bipolar 2 disorder, current episode depressed OCD DEDRICK Cannabis use disorder Plan: -Continue with discharge today as patient has improved and stabilized psychiatrically and is not currently an imminent threat to themself and/or othe rs. -Continue medications: Abilify maintena 400 mg IM every 4 weeks last given on 05/04 and next due on 06/01. Continue oral Abilify 15 mg for 2 weeks then discontinue, Cymbalta 30 mg at bedtime, Atarax 50 mg at bedtime -Patient was counseled on the need for medication compliance and appropriate follow-up at mental health and also primary care for medical issues. Patient verbalized understanding and agreed. -Social work to help coordinate patients discharge today arrange for and conduct family meeting to ensure safety upon discharge and answer any questions/concerns. also to ensure safe home environment that guns/weapons are either removed from the home or locked away. Social work also to arrange for patients follow up appointments with [facility] for psychiatric care along with follow up with primary care provider. -Patient counseled on abstaining from recreational drugs and marijuana and alcohol. Was informed/educated on the adverse effects on their physical and mental health. Patient verbally agreed and understood. -Patient was instructed to return to the hospital or seek immediate medical care if their psychiatric or medical symptoms do worsen or reoccur. Abnormal Labs 05/02/25 05/02/25 05/03/25 21:47 21:47 08:09 Eosinophils # 0.40 H Urine Blood Moderate H Ur Leukocyte Esterase Small H Urine WBC 6 H Urine Mucus Moderate H U Marijuana (THC) Screen Detected H Allergies Allergy/AdvReac Type Severity Reaction Status Date / Time shellfish derived [Lobster] Allergy Rash/Hives Verified 05/02/25 16:38 Vital Signs Temp 97.8 F 05/05/25 09:00 Pulse 98 05/05/25 09:00 Resp 16 05/05/25 09:00 BP 108/72 05/05/25 09:00 Pulse Ox 98 05/05/25 09:00 FiO2 Patient Condition at Discharge: Stable Plan - Discharge Summary New Discharge Prescriptions: New ARIPiprazole [Abilify] 15 mg PO DAILY 14 Days #14 tab hydrOXYzine HCL [Atarax] 50 mg PO HS 30 Days #60 tab traZODone HCL [Desyrel] 50 mg PO HS PRN 30 Days #30 tab PRN Reason: Insomnia DULoxetine HCL [Cymbalta] 30 mg PO HS 30 Days #30 cap Continue Pnv No.95/Ferrous Fum/Folic AC [ Multivitamin Tablet] 1 tab PO DAILY Methylphenidate HCl [Ritalin] 20 mg PO DAILY Cholecalciferol [Vitamin D3 (25 Mcg = 1000 Iu)] 50 mcg PO DAILY Ferrous Sulfate [Iron (65 MG Elemental)] 325 mg PO DAILY Discontinued ARIPiprazole [Abilify] 10 mg PO DAILY Discharge Medication List Pnv No.95/Ferrous Fum/Folic AC [ Multivitamin Tablet] 1 tab PO DAILY 06/21/18 [History] Cholecalciferol [Vitamin D3 (25 Mcg = 1000 Iu)] 50 mcg PO DAILY 05/02/25 [History] Ferrous Sulfate [Iron (65 MG Elemental)] 325 mg PO DAILY 05/02/25 [History] Methylphenidate HCl [Ritalin] 20 mg PO DAILY 05/02/25 [History] ARIPiprazole [Abilify] 15 mg PO DAILY 14 Days #14 tab 05/05/25 [Rx] DULoxetine HCL [Cymbalta] 30 mg PO HS 30 Days #30 cap 05/05/25 [Rx] hydrOXYzine HCL [Atarax] 50 mg PO HS 30 Days #60 tab 05/05/25 [Rx] traZODone HCL [Desyrel] 50 mg PO HS PRN 30 Days #30 tab 05/05/25 [Rx] Follow up Appointment(s)/Referral(s): [facility] [Outside] - 05/08/25 3:00 pm (Intake at [facility] office 05/08/25 @ 3:00 pm stephanie Leon) Peewee Smith MD [Primary Care Provider] - 1-2 days Activity/Diet/Wound Care/Special Instructions: [facility] Discharge Info Avoid the use of street drugs and alcohol. Take all medications as prescribed. When you are in need of refills on your medications, please contact your outpatient medical provider and/or outpatient psychiatrist. Please go to your scheduled outpatient appointments for aftercare treatment. If symptoms return or become worse, call the crisis line at or and/or visit the nearest emergency room for assistance. National Suicide and Crisis Lifeline - call or text 988.Medical physician recommends to follow up outpatient in 4-6 weeks to have thyroid levels checked again. Recommendations to have an EMG outpatient on bilateral upper extremities for probable bilateral carpal tunnel. Discharge Disposition: HOME SELF-CARE
== END 2025-05-05 13:45 | disposition home or self-care (01) | DRG 885 ==
LOC: EC 15:35 → 3MHU 20:35
PROVIDERS: ADMIT Psychiatry & Neurology Psychiatry; ATTEND Psychiatry & Neurology Psychiatry
DX: F31.81 Bipolar II disorder (principal); R45.851 Suicidal ideations; F12.10 Cannabis abuse, uncomplicated; J45.909 Unspecified asthma, uncomplicated; F41.1 Generalized anxiety disorder; F42.9 Obsessive-compulsive disorder, unspecified; G47.00 Insomnia, unspecified; Z79.899 Other long term (current) drug therapy; F90.9 Attention-deficit hyperactivity disorder, unspecified type; Z86.59 Personal history of other mental and behavioral disorders; Z71.51 Drug abuse counseling and surveillance of drug abuser
CPT/HCPCS: 80053; 80061; 80306; 81001; 81025; 82075; 83036; 84443; 85025; 87635; 99285